=== PATIENT | female | born 1955 | race American Indian/Alaskan Native ===

== ENCOUNTER 2017-06-19 15:00 | Emergency (ER) | payer MEDICAID ==
[2017-06-19 15:08] VITALS: BP 119/65
[2017-06-19] MEDS ORDERED: NORCO 7.5/325 PO ONE (18:56)
[2017-06-19] MEDS ORDERED: MOTRIN PO ONE (18:56)
--- NOTE | 2017-06-19 18:57 | Emergency Department Report ---
Blank Doc - Documentation Documentation: Patient is a 61-year-old Female presenting with left fifth digit toe pain. Patient states she hit it last night and heard a cracking sound. Patient have x -ray performed.
--- NOTE | 2017-06-19 19:06 | Emergency Department Report ---
ED Lower Extremity HPI - General Chief Complaint: Extremity Injury, Lower Stated Complaint: FOOT INJURY Time Seen by Provider: 06/19/17 18:50 Source: patient Mode of arrival: Ambulatory Limitations: No Limitations - History of Present Illness Initial Comments: This is a 61-year-old female nontoxic, well nourished in appearance, no acute signs of distress presents to the ED with c/o of left fifth digit toe pain. Patient stated that last pain she kicked her furniture and heard a cracking sound. Patient denies any numbness, tingling, fever, chills, nausea, vomiting, chest pain, short of breath. Patient denies decreased range of motion or joint swelling. Denies joint redness. Patient stated allergies to sulfa. Denies significant PMH. MD Complaint: foot injury -: Last night Injury: Toes: Left (5th toe) Type of Injury: blunt Place: home Severity: mild Severity scale (0 -10): 8 Improves With: immobilization Worsens With: movement, palpation Context: direct blow Associated Symptoms: able to partially bear weight, ambulatory. denies: snap/ pop sensation, swelling, numbness, tingling, unable to bear weight - Related Data Home Medications Medication Instructions Recorded Confirmed Last Taken Diltiazem Cd [Cardizem CD] 180 mg PO QDAY 12/18/12 06/20/13 06/20/13 Previous Rx's Medication Instructions Recorded Last Taken Type Lisinopril [Zestril TAB] 10 mg PO QDAY #30 tablet 01/23/13 06/20/13 Rx oxyCODONE /ACETAMINOPHEN [Percocet 1 tab PO Q6HR PRN #20 tablet 06/20/13 Unknown Rx 5/325 mg] Meloxicam [Mobic] 7.5 mg PO Q12H #60 tablet 08/03/13 Unknown Rx oxyCODONE /ACETAMINOPHEN [Percocet 1 tab PO Q6HR PRN #20 tablet 08/03/13 Unknown Rx 5/325 mg] Cyclobenzaprine HCl [Flexeril 5mg] 5 mg PO DAILY #15 tablet 08/26/13 Unknown Rx traMADol [Ultram 50 MG tab] 50 mg PO Q6HR PRN #15 tablet 08/26/13 Unknown Rx Ciprofloxacin HCl [Cipro] 500 mg PO Q12H #20 tab 10/30/13 Unknown Rx HYDROcodone/APAP 10-325 [[place] 1 each PO Q8HR PRN #14 tablet 10/30/13 Unknown Rx 10/325] Promethazine [Phenergan TAB] 25 mg PO Q6H PRN #15 tablet 10/30/13 Unknown Rx Ibuprofen [Motrin] 600 mg PO Q8H PRN #30 tablet 06/19/17 Unknown Rx traMADol [Ultram] 50 mg PO Q6HR PRN #12 tablet 06/19/17 Unknown Rx Allergies Allergy/AdvReac Type Severity Reaction Status Date / Time Sulfa (Sulfonamide Allergy Rash Verified 06/19/17 15:05 Antibiotics) ED Review of Systems ROS: Stated complaint: FOOT INJURY Other details as noted in HPI Constitutional: denies: chills, fever Eyes: denies: eye pain, eye discharge, vision change ENT: denies: ear pain, throat pain Respiratory: denies: cough, shortness of breath, wheezing Cardiovascular: denies: chest pain, palpitations Endocrine: no symptoms reported Gastrointestinal: denies: abdominal pain, nausea, diarrhea Genitourinary: denies: urgency, dysuria, discharge Musculoskeletal: arthralgia. denies: back pain, joint swelling Skin: denies: rash, lesions Neurological: denies: headache, weakness, paresthesias Psychiatric: denies: anxiety, depression Hematological/Lymphatic: denies: easy bleeding, easy bruising ED Past Medical Hx - Past Medical History Hx Hypertension: Yes Hx Diabetes: Yes Hx Arthritis: Yes Additional medical history: chronic hip pain "crushed femur" denies surgery - Surgical History Hx Cholecystectomy: Yes - Social History Smoking Status: Current Some Day Smoker Substance Use Type: None - Medications Home Medications: Home Medications Medication Instructions Recorded Confirmed Last Taken Type Diltiazem Cd [Cardizem CD] 180 mg PO QDAY 12/18/12 06/20/13 06/20/13 History Lisinopril [Zestril TAB] 10 mg PO QDAY #30 tablet 01/23/13 06/20/13 06/20/13 Rx oxyCODONE /ACETAMINOPHEN [Percocet 1 tab PO Q6HR PRN #20 tablet 06/20/13 Unknown Rx 5/325 mg] Meloxicam [Mobic] 7.5 mg PO Q12H #60 tablet 08/03/13 Unknown Rx oxyCODONE /ACETAMINOPHEN [Percocet 1 tab PO Q6HR PRN #20 tablet 08/03/13 Unknown Rx 5/325 mg] Cyclobenzaprine HCl [Flexeril 5mg] 5 mg PO DAILY #15 tablet 08/26/13 Unknown Rx traMADol [Ultram 50 MG tab] 50 mg PO Q6HR PRN #15 tablet 08/26/13 Unknown Rx Ciprofloxacin HCl [Cipro] 500 mg PO Q12H #20 tab 10/30/13 Unknown Rx HYDROcodone/APAP 10-325 [[place] 1 each PO Q8HR PRN #14 tablet 10/30/13 Unknown Rx 10/325] Promethazine [Phenergan TAB] 25 mg PO Q6H PRN #15 tablet 10/30/13 Unknown Rx Ibuprofen [Motrin] 600 mg PO Q8H PRN #30 tablet 06/19/17 Unknown Rx traMADol [Ultram] 50 mg PO Q6HR PRN #12 tablet 06/19/17 Unknown Rx ED Physical Exam - General Limitations: No Limitations General appearance: alert, in no apparent distress - Head Head exam: Present: atraumatic, normocephalic - Eye Eye exam: Present: normal appearance Pupils: Present: normal accommodation - ENT ENT exam: Present: normal exam, mucous membranes moist - Neck Neck exam: Present: normal inspection, full ROM - Respiratory Respiratory exam: Present: normal lung sounds bilaterally. Absent: respiratory distress, wheezes, rales, rhonchi, stridor - Cardiovascular Cardiovascular Exam: Present: regular rate, normal rhythm, normal heart sounds. Absent: irregular rhythm, systolic murmur, diastolic murmur, rubs, gallop - GI/Abdominal GI/Abdominal exam: Present: soft, normal bowel sounds - Extremities Exam Extremities exam: Present: normal inspection, full ROM, tenderness, normal capillary refill. Absent: pedal edema, joint swelling, calf tenderness - Expanded Lower Extremity Exam Left Hip exam: Present: normal inspection, full ROM Upper Leg exam: Present: normal inspection, full ROM Knee exam: Present: normal inspection, full ROM Lower Leg exam: Present: normal inspection, full ROM Ankle exam: Present: normal inspection, full ROM Foot/Toe exam: Present: normal inspection, full ROM, tenderness, ecchymosis. Absent: swelling, abrasion, laceration, deformity, crepidus, dislocation, erythema, amputation, puncture wound, foreign body, calcaneal tenderness, tenderness at base of 5th metatarsal, nail avulsion, subungual hematoma Neuro vascular tendon exam: Present: no vascular compromise. Absent: pulse deficit, abnormal cap refill, motor deficit, sensory deficit, tendon deficit, extremity cold to touch, pallor, abnormal 2-point discrimination, decreased fine /light touch, foot drop, peroneal nerve deficit, significant pain with passive ROM of distal joint Gait: Positive: observed and limited by pain 1 - pain - Back Exam Back exam: Present: normal inspection, full ROM - Neurological Exam Neurological exam: Present: alert, oriented X3, normal gait - Psychiatric Psychiatric exam: Present: normal affect, normal mood - Skin Skin exam: Present: warm, dry, intact, normal color. Absent: rash ED Course Vital Signs 06/19/17 15:05 Temperature 98.6 F Pulse Rate 86 Respiratory 16 Rate Blood Pressure 119/65 O2 Sat by Pulse 96 Oximetry - Reevaluation(s) Reevaluation #1: 06/19/17 19:06 Patient is speaking in full sentences with no signs of distress noted. - Consultations Consultation #1: 06/19/17 19:06 Patient has been consulted with Dr. Bhandari about patient history, physical exam , and xray report and examined and screened patient and agrees to ED plan of care and discharge plan of care. ED Lower Extremity MDM - Medical Decision Making This is a 61-year-old female that presents with left toe fracture. Patient is stable and was examined by me and Dr. Bhandari. Xray has been obtained and reviewed by Dr. Bhandari with fratoshia of the toe. Patient is notified of the xray report with no questions noted by the patient. Patient received RICE in the ED. Patient also received motrin in the ED. Saqib tape placed to the 4th and 5th toe. Patient received a ortho boat in the ED for pain comfort. Patient was instructed to RICE therapy. Patient is discharged with motrin. Patient was referred to Follow-up with a orthopedic doctor in 3-5 days or if symptoms worsen and continue return to emergency room as soon as possible. At time of discharge, the patient does not seem toxic or ill in appearance. No acute signs of distress noted. Patient agrees to discharge treatment plan of care. No further questions noted by the patient. Critical care attestation.: If time is entered above; I have spent that time in minutes in the direct care of this critically ill patient, excluding procedure time. ED Disposition Clinical Impression: Fracture of fifth toe, left, closed Qualifiers: Encounter type: initial encounter Qualified Code(s): S92.502A - Displaced unspecified fracture of left lesser toe(s), initial encounter for closed fracture Disposition: - TO HOME OR SELFCARE Is pt being admited?: No Does the pt Need Aspirin: No Condition: Stable Instructions: Ibuprofen (By mouth), RICE Therapy (ED), Toe Fracture (ED) Additional Instructions: Follow-up with a orthopedic doctor in 3-5 days or if symptoms worsen and continue return to emergency room as soon as possible. Prescriptions: Ibuprofen [Motrin] 600 mg PO Q8H PRN #30 tablet PRN Reason: Pain traMADol [Ultram] 50 mg PO Q6HR PRN #12 tablet PRN Reason: Pain Referrals: PRIMARY CAREMD [Primary Care Provider] - 3-5 Days KARLENE SADLER MD [Staff Physician] - 3-5 Days [facility] [Outside] - 3-5 Days [facility] [Outside] - 3-5 Days
--- NOTE | 2017-06-19 20:26 | XRay Report ---
FINAL REPORT EXAM: XR FOOT 2V LT HISTORY: 5th toe injury TECHNIQUE: Left foot two views PRIORS: None. FINDINGS: There is acute traumatic transverse fracture with an oblique component proximal phalanx of the 5th toe. Articular surfaces appear intact no significant angulation or displacement. Dense focus noted within the calcaneus noted consistent with a benign bone island. There is a tiny plantar calcaneal enthesophyte. IMPRESSION: Acute fracture proximal phalanx of the 5th toe Small plantar calcaneal enthesophyte noted
== END 2017-06-19 20:00 | disposition home or self-care (01) ==
LOC: ED 15:00
DX: S92.502A Displaced unspecified fracture of left lesser toe(s), initial encounter for closed fracture (principal); I10 Essential (primary) hypertension; E11.9 Type 2 diabetes mellitus without complications; M19.90 Unspecified osteoarthritis, unspecified site; Z90.49 Acquired absence of other specified parts of digestive tract; F17.200 Nicotine dependence, unspecified, uncomplicated; Z88.2 Allergy status to sulfonamides; W50.1XXA Accidental kick by another person, initial encounter; Y93.89 Activity, other specified; Y92.89 Other specified places as the place of occurrence of the external cause; Y99.8 Other external cause status
CPT/HCPCS: 99283